=== PATIENT | female | born 1950 | race Caucasian/White ===

== ENCOUNTER 2019-03-27 06:55 | Emergency (ER) | payer MEDICARE, BC ==
--- NOTE | 2019-03-27 07:14 | Emergency Department Record ---
History of Present Illness - General Chief Complaint: Shortness of breath Stated Complaint: SRIKANTH AT HOME/RESOLVED NOW Time Seen by Provider: 03/27/19 07:03 Source: Patient Mode of Arrival: Ambulatory Limitations: No limitations - History of Present Illness Initial Comments: 68 yo female presents with a cough since Tuesday. She states the cough has gradually increased. No fevers. No chest pain. She has not seen any sputum. She has mild sore throat with mild drainage. She had a prolonged coughing episode this morning that woke her. This has since resolved. No chest pain. She denies any prior history of smoking. No underlying lung disease. No leg pain or calf pain. She has mild increase in her myalgia from her fibromyalgia. No nause, vomiting or diarrhea. She has been around two grandchildren with runny nose and cough. MD Complaint: Cough, Shortness of breath -: Days(s) (2) Radiation: Other (No pain) Severity: Moderate Quality: Aching Consistency: Intermittent Improves With: Nothing Worsens With: Coughing Known History Of: Other (No underlying lung disease, history of afib) Associated Symptoms: Cough - Related Data Home Medications Medication Instructions Recorded Confirmed Last Taken Amlodipine Besylate 7.5 mg PO DAILY 03/27/19 03/27/19 Unknown Metoprolol Succinate [Toprol Xl] 25 mg PO DAILY 03/27/19 03/27/19 Unknown Rivaroxaban [Xarelto] 10 mg PO DAILY 03/27/19 03/27/19 Unknown Previous Rx's Medication Instructions Recorded Benzonatate [Tessalon] 1 cap PO Q8H PRN #15 cap 03/27/19 Allergies Allergy/AdvReac Type Severity Reaction Status Date / Time No Known Drug Allergies Allergy Verified 03/27/19 07:06 Review of Systems Constitutional: Denies: Chills, Fever, Malaise, Weakness Eyes: Denies: Eye discharge ENT: Reports: Congestion, Throat pain. Denies: Epistaxis Respiratory: Reports: Dyspnea. Denies: Cough, Hemoptysis, Stridor, Wheezes Cardiovascular: Denies: Chest pain Endocrine: Denies: Fatigue, Polydipsia, Polyuria Gastrointestinal: Denies: Abdominal pain, Diarrhea, Nausea, Vomiting Genitourinary: Denies: Dysuria, Frequency Musculoskeletal: Denies: Arthralgia, Back pain, Myalgia Skin: Denies: Bruising, Change in color, Rash Neurological: Denies: Headache Psychiatric: Denies: Anxiety Hematological/Lymphatic: Denies: Easy bleeding, Easy bruising, Swollen glands Physical Exam - General General Appearance: Alert, Oriented x3, Cooperative, No acute distress Limitations: No limitations - Head Head exam: Atraumatic, Normal inspection - Eye Eye exam: Normal appearance. negative: Conjunctival injection - ENT ENT exam: Normal exam, Mucous membranes moist, Normal orophraynx. negative: Mucous membranes dry Ear exam: Normal external inspection Nasal Exam: Normal inspection Mouth exam: Normal external inspection Teeth exam: Normal inspection Throat exam: Normal inspection. negative: Tonsillar erythema, Tonsillomegaly, Tonsillar exudate, R peritonsillar mass, L peritonsillar mass - Neck Neck exam: Normal inspection, Full ROM. negative: Lymphadenopathy - Respiratory Respiratory exam: Normal lung sounds bilaterally. negative: Prolonged expiratory, Respiratory distress, Rhonchi, Stridor, Wheezes - Cardiovascular Cardiovascular Exam: Regular rate, Normal rhythm, Normal heart sounds. negative: Diastolic murmur, Systolic murmur Peripheral Pulses: 2+: Radial (R), Radial (L) - GI/Abdominal GI/Abdominal exam: Soft. negative: Tenderness - Rectal Rectal exam: Deferred - exam: Deferred - Extremities Extremities exam: Normal inspection. negative: Calf tenderness, Pedal edema, Tenderness - Back Back exam: Denies: CVA tenderness (R), CVA tenderness (L) - Neurological Neurological exam: Alert, Oriented X3 - Psychiatric Psychiatric exam: Normal affect, Normal mood. negative: Agitated, Anxious - Skin Skin exam: Dry, Intact, Normal color, Warm Course - Reevaluation(s) Reevaluation #1: 03/27/19 07:20 The vitals were reviewed No abnormalities CXR was negative 03/27/19 07:53 Likely viral etiology. No symptoms in the ED. Normal vitals. Well appearing. We discussed symptomatic treatment and reasons for return to the ED for a recheck. Disposition Disposition: Discharge Clinical Impression: Cough Disposition: Home, Self-Care Condition: (1) Good Instructions: Acute Cough (ED) Additional Instructions: Return to the ED if you have any fever, worsening cough, short of breath or new symptoms Call your doctor for close follow up after this ER visit Take the prescriptions as directed Prescriptions: Benzonatate [Tessalon] 1 cap PO Q8H PRN #15 cap PRN Reason: Cough Forms: Patient Portal Access Time of Disposition: 07:51 Quality - Quality Measures Quality Measures: N/A - Blood Pressure Screening Does Patient Have Any of the Following: No Blood Pressure Classification: Pre-Hypertensive BP Reading Systolic Measurement: 126 Diastolic Measurement: 78 Screening for High Blood Pressure: < Pre-Hypertensive BP, F/U Documented > [[id number]] Pre-Hypertensive Follow-up Interventions: Referral to alternative/primary care provider.
--- NOTE | 2019-03-27 07:36 | RADIOLOGY REPORT ---
EXAMINATION: Two View Chest Radiographs EXAM DATE: 03/27/2019 7:32 AM TECHNIQUE: Frontal and lateral views INDICATION: cough COMPARISON: None ENCOUNTER: Not applicable FINDINGS: Heart and mediastinal structures unremarkable. No pulmonary consolidation or infiltration. No pneumot horax or pleural effusion. Degenerative change thoracic spine. IMPRESSION: No acute abnormality Dictated by: Cayetano Rooney MD on 03/27/2019 7:33 AM. .
[2019-03-27] MEDS ORDERED: DEXAMETHASONE SOD PHOSPHATE 10MG/ML VIAL PO ONE (07:50)
== END 2019-03-27 08:07 | disposition home or self-care (01) ==
LOC: ER 06:55
DX: R05 Cough (principal); R06.02 Shortness of breath; I48.91 Unspecified atrial fibrillation
CPT/HCPCS: 71046; 99283